=== PATIENT | female | born 1995 | race Caucasian/White ===

== ENCOUNTER 2016-12-21 19:22 | Emergency (ER) | payer OTHER ==
[~2016-12-21] VITALS: Ht 157.5 cm; Wt 74.8 kg
[2016-12-21] MEDS ORDERED: CITA20TA4 PO (19:29)
[2016-12-21] MEDS ORDERED: CLAR1TAB2 PO (19:29)
[2016-12-21] MEDS ORDERED: NS 1,000 ML IV ONE (20:45)
[2016-12-21 20:57] LABS: BASO # 0.1 K/mm3 (0.0-0.2); BASO % 0.7 % (0.0-1.0); EOS # 0.5 K/mm3 (0.0-0.50); EOS % 4.6 % (0.0-3.0); LARGE UNSTAINED CELL # 0.3 K/mm3 (0.0-0.4); LARGE UNSTAINED CELL % 2.3 % (0.0-4.0); LYMPH # 3.4 K/mm3 (1.5-6.5); LYMPH % 29.6 % (24.0-44.0); MEAN CORPUSCULAR HEMOGLOBIN 26.6 pg (27.0-33.0); MEAN CORPUSCULAR VOLUME 80.6 fl (80.0-96.0); MONO # 0.6 K/mm3 (0.0-0.8); MONO % 4.8 % (0.0-5.0); NEUTROPHILS # 6.7 K/mm3 (1.8-7.7); PLATELET COUNT, AUTOMATED 382 k/mm3 (150-450); RED CELL DISTRIBUTION WIDTH 13.9 % (11.5-14.5); WHITE BLOOD COUNT 11.6 K/mm3 (4.0-10.0)
[2016-12-21 21:14] LABS: CONTROL LINE HCG INT CTR LINE PRESENT
[2016-12-21 21:22] LABS: ALBUMIN 3.3 GM/DL (3.2-5.2); ALBUMIN/GLOBULIN RATIO 0.94 (1.00-1.93); ALKALINE PHOSPHATASE 89 U/L (45-117); ALT/SGPT 18 U/L (12-78); AMYLASE 65 U/L (25-115); ANION GAP 7 MEQ/L (8-16); AST/SGOT 13 U/L (15-37); BILIRUBIN,DIRECT < 0.1 MG/DL (0.0-0.2); BILIRUBIN,TOTAL 0.2 MG/DL (0.2-1.0); BLOOD UREA NITROGEN 9 MG/DL (7-18); CALCIUM LEVEL 8.5 MG/DL (8.5-10.1); CARBON DIOXIDE LEVEL 26 MEQ/L (21-32); CHLORIDE LEVEL 105 MEQ/L (98-107); CREATININE FOR GFR 0.64 MG/DL (0.55-1.02); GLOMERULAR FILTRATION RATE > 60.0 (>60); GLUCOSE, FASTING 80 MG/DL (70-105); POTASSIUM SERUM 4.2 MEQ/L (3.5-5.1); SODIUM LEVEL 138 MEQ/L (136-145); TOTAL PROTEIN 6.8 GM/DL (6.4-8.2)
[2016-12-21] MEDS ORDERED: BACTRIM 160MG/800MG DS TAB PO ONE (21:30)
[2016-12-21] MEDS ORDERED: BACT800T5 PO (21:31)
[2016-12-21 22:18] VITALS: BP 110/71
== END 2016-12-21 22:19 | disposition home or self-care (01) ==
LOC: M ED 20:59
DX: E86.0 Dehydration (principal); N39.0 Urinary tract infection, site not specified; F32.9 Major depressive disorder, single episode, unspecified; Z79.899 Other long term (current) drug therapy

== ENCOUNTER 2017-01-22 19:56 | Emergency (ER) | payer OTHER ==
[~2017-01-22] VITALS: Ht 157.5 cm; Wt 75.0 kg
[~2017-01-22 19:56] MED LIST: BACT800T5 PO; CITA20TA4 PO; CLAR1TAB2 PO
[2017-01-22] MEDS ORDERED: BCP PO (20:13)
[2017-01-22] MEDS ORDERED: [UNRECOGNIZED DRUG - REMARK] PO (20:13)
[2017-01-22] MEDS ORDERED: NS 1,000 ML IV ONE (21:00)
[2017-01-22] MEDS ORDERED: MORPHINE 2 MG/ML 1ML SYRINGE IV PRN (21:00)
[2017-01-22] MEDS ORDERED: ONDANSETRON 4MG/2ML VIAL (J2405) IV ONE (21:00)
[2017-01-22 21:40] LABS: BASO # 0.1 K/mm3 (0.0-0.2); BASO % 0.7 % (0.0-1.0); EOS # 0.5 K/mm3 (0.0-0.50); EOS % 4.1 % (0.0-3.0); LARGE UNSTAINED CELL # 0.3 K/mm3 (0.0-0.4); LARGE UNSTAINED CELL % 2.4 % (0.0-4.0); LYMPH # 4.6 K/mm3 (1.5-6.5); LYMPH % 36.3 % (24.0-44.0); MEAN CORPUSCULAR HEMOGLOBIN 26.1 pg (27.0-33.0); MEAN CORPUSCULAR VOLUME 76.9 fl (80.0-96.0); MONO # 0.6 K/mm3 (0.0-0.8); MONO % 5.1 % (0.0-5.0); NEUTROPHILS # 6.1 K/mm3 (1.8-7.7); NEUTROPHILS % 51.5 % (36.0-66.0); PLATELET COUNT, AUTOMATED 390 k/mm3 (150-450); RED CELL DISTRIBUTION WIDTH 13.8 % (11.5-14.5); WHITE BLOOD COUNT 11.9 K/mm3 (4.0-10.0)
[2017-01-22 21:56] LABS: CONTROL LINE HCG INT CTR LINE PRESENT
[2017-01-22 22:02] LABS: ALBUMIN 3.3 GM/DL (3.2-5.2); ALBUMIN/GLOBULIN RATIO 0.92 (1.00-1.93); ALKALINE PHOSPHATASE 92 U/L (45-117); ALT/SGPT 17 U/L (12-78); ANION GAP 2 MEQ/L (8-16); AST/SGOT 13 U/L (15-37); BILIRUBIN,DIRECT < 0.1 MG/DL (0.0-0.2); BILIRUBIN,TOTAL 0.1 MG/DL (0.2-1.0); BLOOD UREA NITROGEN 8 MG/DL (7-18); CALCIUM LEVEL 8.6 MG/DL (8.5-10.1); CARBON DIOXIDE LEVEL 30 MEQ/L (21-32); CHLORIDE LEVEL 107 MEQ/L (98-107); CREATININE FOR GFR 0.62 MG/DL (0.55-1.02); GLOMERULAR FILTRATION RATE > 60.0 (>60); GLUCOSE, FASTING 102 MG/DL (70-105); POTASSIUM SERUM 3.8 MEQ/L (3.5-5.1); SODIUM LEVEL 139 MEQ/L (136-145); TOTAL PROTEIN 6.9 GM/DL (6.4-8.2)
[2017-01-22] MEDS ORDERED: ISOVUE-370 76% 100ML VIAL (Q9967) As Ordered ONE (22:32)
--- NOTE | 2017-01-22 23:10 | REPUSA ---
CT of the abdomen and pelvis with contrast Clinical statement: Pain. Crohn's disease. Technique: Multiple axial CT images were obtained from the base of the lungs through the floor of the pelvis utilizing 5 mm axial slices after administration of nonionic intravenous contrast. Coronal an d sagittal reconstructions were also obtained. Comparison: None. Findings: Chest: The visualized lung bases are clear. Abdomen: The liver, spleen, pancreas, kidneys, gallbladder, and adrenal glands are unremarkable. The aorta is within normal limits. There is no evidence of abdominal lymphadenopathy or ascites. Pelvis: The bowel is unremarkable, with no obstructive or inflammatory changes. The appendix is makenna l. The urinary bladder is within normal limits. The other pelvic structures appear grossly intact. Th ere is no evidence of pelvic lymphadenopathy or ascites. Bones: There are no suspicious osseous abnormalities seen. Impression: Unremarkable CT examination of the abdomen and pelvis.
[2017-01-22] MEDS ORDERED: ASAC800T3 PO (23:26)
[2017-01-22] MEDS ORDERED: ZOFR4TAB3 PO (23:26)
[2017-01-22 23:42] VITALS: BP 126/85
[2017-02-27] MEDS ORDERED: JOLETAB PO (07:47)
== END 2017-01-22 23:44 | disposition home or self-care (01) ==
LOC: M ED 21:33
DX: R10.9 Unspecified abdominal pain (principal); K50.919 Crohn's disease, unspecified, with unspecified complications; Z79.899 Other long term (current) drug therapy
CPT/HCPCS: 74177; 80048; 80076; 81001; 83690; 84703; 85025; 87086; 96374; 96375; 99283; J2405; Q9967

== ENCOUNTER 2017-01-28 17:47 | Emergency (ER) | payer OTHER ==
[~2017-01-28] VITALS: Ht 157.5 cm; Wt 77.8 kg
[~2017-01-28 17:47] MED LIST changes: +ASAC800T3 PO; +BCP PO; +ZOFR4TAB3 PO; +[UNRECOGNIZED DRUG - REMARK] PO
[2017-01-28] MEDS ORDERED: AMOX875T2 PO (17:53)
[2017-01-28] MEDS ORDERED: NS 1,000 ML IV ONE (19:15)
[2017-01-28] MEDS ORDERED: ONDANSETRON 4MG/2ML VIAL (J2405) IV ONE (19:15)
[2017-01-28] MEDS ORDERED: KETOROLAC 30 MG/ML VIAL (J1885) IV ONE (19:15)
[2017-01-28 19:41] LABS: BASO # 0.1 K/mm3 (0.0-0.2); BASO % 0.6 % (0.0-1.0); EOS # 0.4 K/mm3 (0.0-0.50); EOS % 3.2 % (0.0-3.0); LARGE UNSTAINED CELL # 0.2 K/mm3 (0.0-0.4); LARGE UNSTAINED CELL % 1.8 % (0.0-4.0); LYMPH # 3.4 K/mm3 (1.5-6.5); LYMPH % 26.9 % (24.0-44.0); MEAN CORPUSCULAR HGB CONC 34.7 g/dl (32.0-36.5); MEAN CORPUSCULAR VOLUME 77.9 fl (80.0-96.0); MONO # 0.7 K/mm3 (0.0-0.8); MONO % 5.5 % (0.0-5.0); NEUTROPHILS # 7.4 K/mm3 (1.8-7.7); NEUTROPHILS % 62.1 % (36.0-66.0); PLATELET COUNT, AUTOMATED 431 k/mm3 (150-450); RED CELL DISTRIBUTION WIDTH 13.8 % (11.5-14.5)
[2017-01-28 20:10] LABS: ALBUMIN 3.5 GM/DL (3.2-5.2); ALBUMIN/GLOBULIN RATIO 0.92 (1.00-1.93); ALKALINE PHOSPHATASE 91 U/L (45-117); ALT/SGPT 20 U/L (12-78); ANION GAP 5 MEQ/L (8-16); AST/SGOT 12 U/L (15-37); BILIRUBIN,DIRECT < 0.1 MG/DL (0.0-0.2); BILIRUBIN,TOTAL 0.1 MG/DL (0.2-1.0); BLOOD UREA NITROGEN 7 MG/DL (7-18); CALCIUM LEVEL 9.2 MG/DL (8.5-10.1); CARBON DIOXIDE LEVEL 29 MEQ/L (21-32); CHLORIDE LEVEL 107 MEQ/L (98-107); CREATININE FOR GFR 0.62 MG/DL (0.55-1.02); GLOMERULAR FILTRATION RATE > 60.0 (>60); GLUCOSE, FASTING 92 MG/DL (70-105); POTASSIUM SERUM 3.6 MEQ/L (3.5-5.1); SODIUM LEVEL 141 MEQ/L (136-145); TOTAL PROTEIN 7.3 GM/DL (6.4-8.2)
[2017-01-28] MEDS ORDERED: MORPHINE 4 MG/ML 1ML SYRINGE IV ONE (20:15)
[2017-01-28] MEDS ORDERED: GASTROGRAFIN SOLUTION 30ML (Q9963) As Ordered ONE (20:34)
[2017-01-28] MEDS ORDERED: GASTROGRAFIN SOLUTION 30ML (Q9963) PO ONE ×2 (20:45→21:30)
[2017-01-28] MEDS ORDERED: ISOVUE-370 76% 100ML VIAL (Q9967) As Ordered ONE (22:29)
[2017-01-28] MEDS ORDERED: REGL10TA6 PO (23:00)
[2017-01-28] MEDS ORDERED: BENT20TA PO (23:00)
--- NOTE | 2017-01-28 23:02 | REP ---
Clinical: Lower abdominal pain. Technique: Axial contrast enhanced images from the lung bases to the pubic symphysis using oral and 100 ml Isovue 370 intravenous contrast material with coronal and sagittal re-formations. Comparison: 01/22/2017. Findings: Lung bases are clear. Visualized heart and pericardium normal. Liver, spleen, pancreas, gallbladder, bilateral adrenal glands and kidneys are normal. The enteric system is without obstruction or acute inflammatory process. Multiple prominent lymph nodes within the mesentery and right lower quadrant is compatible with mesenteric adenitis. Pelvis demonstrates collapsed normal bladder and age-appropriate uterus/adnexa. No ascites. No free air. No adenopathy. Vascular structures are normal - incidental note is made of retro aortic left renal vein. Surrounding musculoskeletal structures are intact. Impression: Mesenteric adenitis. Signed by Jim Cervantes MD 01/28/2017 10:54 P
[2017-01-28 23:06] VITALS: BP 117/77
[2017-02-27] MEDS ORDERED: JOLETAB PO (07:47)
== END 2017-01-28 23:12 | disposition home or self-care (01) ==
LOC: M ED 18:48
DX: R10.84 Generalized abdominal pain (principal); R11.2 Nausea with vomiting, unspecified; J45.909 Unspecified asthma, uncomplicated; K50.90 Crohn's disease, unspecified, without complications; F41.9 Anxiety disorder, unspecified; Z79.899 Other long term (current) drug therapy
CPT/HCPCS: 36415; 74177; 80048; 80076; 81001; 81025; 83690; 85025; 96361; 96374; 96375; 99284; J1885; J2405; Q9963; Q9967

== ENCOUNTER 2017-02-01 09:22 | Emergency (ER) | payer OTHER ==
[~2017-02-01] VITALS: Ht 157.5 cm; Wt 76.9 kg
[~2017-02-01 09:22] MED LIST changes: +AMOX875T2 PO; +BENT20TA PO; +REGL10TA6 PO
[2017-02-01 09:23] VITALS: BP 128/83
[2017-02-01] MEDS ORDERED: BACT800T5 PO (10:39)
[2017-02-01] MEDS ORDERED: ACET30TAB PO (10:39)
[2017-02-27] MEDS ORDERED: JOLETAB PO (07:47)
== END 2017-02-01 10:44 | disposition home or self-care (01) ==
LOC: M ED 09:22
DX: N39.0 Urinary tract infection, site not specified (principal); J45.909 Unspecified asthma, uncomplicated; F41.9 Anxiety disorder, unspecified; F33.9 Major depressive disorder, recurrent, unspecified; Z79.899 Other long term (current) drug therapy

== ENCOUNTER → 2017-02-13 | Outpatient (CLI) | payer OTHER ==
[~2017-02-13] MED LIST changes: +ACET30TAB PO; +ANAP550T PO; +COLA100C5 PO; +DULO30CA PO; +JOLETAB PO; +MOTR200T44 PO; +NORCOTAB PO; +PERC10TA26 PO
[2017-02-13 14:14] LABS: MEAN CORPUSCULAR HEMOGLOBIN 27.4 pg (27.0-33.0); MEAN CORPUSCULAR HGB CONC 35.2 g/dl (32.0-36.5); RED CELL DISTRIBUTION WIDTH 13.7 % (11.5-14.5); WHITE BLOOD COUNT 9.9 K/mm3 (4.0-10.0)
== END ==
LOC: M LAB 13:41
PROVIDERS: ATTEND Internal Medicine Gastroenterology
DX: R10.84 Generalized abdominal pain (principal); K62.5 Hemorrhage of anus and rectum

== ENCOUNTER → 2017-02-22 | Outpatient (CLI) | payer OTHER ==
[~2017-02-22] MED LIST changes: +E-Z-GAS II EFFERVESCENT PACKET (SODIUM BICARB./CITRIC ACID/SIMETHICONE) As Ordered ONE; +E-Z-HD 98% w/w 340GM SUSP BTL As Ordered ONE; +E-Z-PAQUE 96% w/w SUSP 176GM BTL As Ordered ONE
--- NOTE | 2017-02-22 17:01 | REP ---
Upper GI air contrast The procedure was performed under the direct supervision of Dr. Rodriguez. The commercial hvac service technician film shows no organomegaly or pathological masses . The bowel gas pattern is nonspecific. Liquid barium and gas producing crystals were given in the erect and prone oblique position and an or to perform a double contrast upper GI examination. Additionally liquid barium was given at the end of the examination in order to perform a small bowel follow-through. The oral and pharyngeal stages of deglutition are unremarkable. Esophageal transport is prompt and efficient and there is no esophagitis or stricture mucosal ring or hiatal hernia. There is gastroesophageal reflux demonstrated to below the level of the benjamin. The stomach rausch are normally outlined . The rugal folds are smooth and regular. There is no gastritis neoplasm or ulcer disease. The duodenal rausch are normally outlined . The mucosal folds are smooth and regular. There is no duodenitis pancreatitis peptic ulcer disease or neoplasm. The visualized portion of the proximal small bowel appears normal in course and caliber. The barium column was followed through the small bowel to the level of the terminal ileum. Small bowel transit time is approximately 30 minutes. During fluoroscopy gentle palpation shows all loops are freely movable and pliable. There are no fixed or angulated loops. The small bowel mucosal pattern is normal in course and caliber. There is no transition to suggest a partial small-bowel obstruction. Spot filming of the terminal ileum shows it to be unremarkable. Impression: There is gastroesophageal reflux demonstrated to below the level of the benjamin. Otherwise unremarkable double contrast upper GI and small bowel follow-through examination. 3 minutes and 25 seconds of fluoro time was utilized for this procedure. Reviewed by AMAYA Gonzalez 02/22/2017 04:40 PSigned by Austin Rodriguez MD 02/22/2017 04:53 P
== END ==
LOC: M RAD 09:15
PROVIDERS: ATTEND Internal Medicine Gastroenterology
DX: R10.84 Generalized abdominal pain (principal); K21.9 Gastro-esophageal reflux disease without esophagitis

== ENCOUNTER 2017-02-27 19:30 | Emergency (ER) | payer OTHER ==
[~2017-02-27] VITALS: Ht 157.5 cm; Wt 77.2 kg
[~2017-02-27 19:30] MED LIST changes: -ANAP550T PO; -COLA100C5 PO; -DULO30CA PO; -E-Z-GAS II EFFERVESCENT PACKET (SODIUM BICARB./CITRIC ACID/SIMETHICONE) As Ordered ONE; -E-Z-HD 98% w/w 340GM SUSP BTL As Ordered ONE; -E-Z-PAQUE 96% w/w SUSP 176GM BTL As Ordered ONE; -MOTR200T44 PO; -NORCOTAB PO; -PERC10TA26 PO
[2017-02-27] MEDS ORDERED: NS 1,000 ML IV SCH (20:08)
[2017-02-27] MEDS ORDERED: KETOROLAC 30 MG/ML VIAL (J1885) IV ONE (20:15)
[2017-02-27] MEDS ORDERED: ONDANSETRON 4MG/2ML VIAL (J2405) IV ONE (20:15)
[2017-02-27] MEDS ORDERED: PANTOPRAZOLE 40MG INJ (PROTONIX) (C9113) IV ONE (20:15)
[2017-02-27 20:27] LABS: INR 0.97
[2017-02-27 20:35] LABS: BASO # 0.1 K/mm3 (0.0-0.2); BASO % 0.8 % (0.0-1.0); EOS # 0.4 K/mm3 (0.0-0.50); EOS % 3.7 % (0.0-3.0); LARGE UNSTAINED CELL # 0.2 K/mm3 (0.0-0.4); LARGE UNSTAINED CELL % 2.2 % (0.0-4.0); LYMPH % 38.3 % (24.0-44.0); MEAN CORPUSCULAR HEMOGLOBIN 26.7 pg (27.0-33.0); MEAN CORPUSCULAR HGB CONC 34.5 g/dl (32.0-36.5); MEAN CORPUSCULAR VOLUME 77.5 fl (80.0-96.0); MONO # 0.5 K/mm3 (0.0-0.8); MONO % 5.6 % (0.0-5.0); NEUTROPHILS # 4.8 K/mm3 (1.8-7.7); NEUTROPHILS % 49.5 % (36.0-66.0); PLATELET COUNT, AUTOMATED 443 k/mm3 (150-450); RED CELL DISTRIBUTION WIDTH 13.7 % (11.5-14.5); WHITE BLOOD COUNT 9.8 K/mm3 (4.0-10.0)
[2017-02-27 20:47] LABS: ALBUMIN 3.6 GM/DL (3.2-5.2); ALBUMIN/GLOBULIN RATIO 1.06 (1.00-1.93); ALKALINE PHOSPHATASE 83 U/L (45-117); ALT/SGPT 15 U/L (12-78); AMYLASE 66 U/L (25-115); ANION GAP 8 MEQ/L (8-16); AST/SGOT 8 U/L (15-37); BILIRUBIN,DIRECT < 0.1 MG/DL (0.0-0.2); BILIRUBIN,TOTAL 0.2 MG/DL (0.2-1.0); BLOOD UREA NITROGEN 7 MG/DL (7-18); CALCIUM LEVEL 9.3 MG/DL (8.5-10.1); CARBON DIOXIDE LEVEL 25 MEQ/L (21-32); CHLORIDE LEVEL 103 MEQ/L (98-107); CREATININE FOR GFR 0.67 MG/DL (0.55-1.02); GLOMERULAR FILTRATION RATE > 60.0 (>60); GLUCOSE, FASTING 111 MG/DL (70-105); SODIUM LEVEL 136 MEQ/L (136-145)
[2017-02-27 20:57] LABS: CONTROL LINE HCG INT CTR LINE PRESENT
[2017-02-27] MEDS ORDERED: MORPHINE 2 MG/ML 1ML SYRINGE IV ONE (21:45)
--- NOTE | 2017-02-27 21:50 | REPUSA ---
CLINICAL HISTORY: Abdominal pain. TECHNIQUE: Multiple axial, sagittal and coronal CT images were obtained through the abdomen and pelvi s without administration of oral or IV contrast material. Oral contrast material is noted in the col on. COMMENTS: The liver is of uniform attenuation without mass or defect. There is no intra or extrahepatic biliary ductal dilatation. The spleen is normal. The gallbladder is contracted. The pancreas is of normal co ntour and attenuation characteristics. There is no evidence of adrenal mass. The kidneys are normal in size, shape and configuration. No renal or ureteral calculi are identified. There is no hydroureter or hydronephrosis. There is no evidence for appendicitis. There is no bowel wall thickening. No evidence for small or la rge bowel obstruction. Numerous mesenteric lymph nodes are noted, enlarged in the right lower quadra nt measuring up to 15 mm in cross section. Although this could represent acute mesenteric lymphaden itis, please correlate clinically to exclude lymphoproliferative disorder. There is no evidence of intrinsic or extrinsic bladder mass. There is no pelvic ascites or lymphadeno tristan. The uterus and ovaries are normal Images of the lung bases show no evidence of pleural or parenchymal mass. There are no pleural effusi ons. The bony structures are free of lytic or blastic lesions. IMPRESSION: Numerous mesenteric lymph nodes are noted, enlarged in the right lower quadrant measuring up to 15 m m in cross section. Although this could represent acute mesenteric lymphadenitis, please correlate c linically to exclude lymphoproliferative disorder. Clinical correlation is recommended. Thank you for your kind referral of this patient.
[2017-02-27] MEDS ORDERED: ZOFR4TAB3 PO (21:55)
[2017-02-27] MEDS ORDERED: NORCOTAB PO (21:55)
[2017-02-27] MEDS ORDERED: NORCO 5/325MG TABLET (BULK FOR ED) PO ONE (22:00)
[2017-02-27 22:12] VITALS: BP 118/78
--- NOTE | 2017-02-28 07:31 | ED PDOC ---
Post-Departure Follow-Up radiology report faxed to [facility] Norah Pablo MD Feb 28, 2017 07:31
== END 2017-02-27 22:38 | disposition home or self-care (01) ==
LOC: M ED 19:30
DX: I88.0 Nonspecific mesenteric lymphadenitis (principal); R10.9 Unspecified abdominal pain; J45.909 Unspecified asthma, uncomplicated; Z79.3 Long term (current) use of hormonal contraceptives; Z79.899 Other long term (current) drug therapy
CPT/HCPCS: 74176; 80048; 80076; 81001; 82150; 83690; 84703; 85025; 85610; 87086; 96374; 96375; 99284; C9113; J1885; J2405

== ENCOUNTER 2017-03-06 07:17 | Outpatient (CLI) | payer OTHER ==
[~2017-03-06] VITALS: Ht 157.5 cm; Wt 77.1 kg
[~2017-03-06 07:17] MED LIST changes: +LIDOCAINE 2% INJ 100 MG/5 ML SDV (FOR ANES.) As Ordered ONE; +NORCOTAB PO; +NS 1,000 ML IV SCH; +PROPOFOL 200 MG/20 ML VIAL As Ordered ONE
[2017-03-06] MEDS ORDERED: PROPOFOL 200 MG/20 ML VIAL As Ordered ONE (07:56)
--- NOTE | 2017-03-06 08:13 | ROOR ---
Patient Name: Priya Mcgraw Procedure Date: 03/06/2017 7:48 AM Date of : 1995 Age: 21 Room: [facility] Gender: Female Note Status: Finalized Procedure: Total Colonoscopy to Cecum + ileoscopy + Bx Indications: Lower abdominal pain, Change in bowel habits Providers: Mickey Mcgee MD Referring MD: MARKOS BURROWS MD Requesting Provider: Medicines: Monitored Anesthesia Care Complications: No immediate complications. Procedure: Pre-Anesthesia Assessment: - The heart rate, respiratory rate, oxygen saturations, blood pressure, adequacy of pulmonary ventilation, and response to care were monitored throughout the procedure. The Colonoscope was introduced through the anus and advanced to the terminal ileum, with identification of the appendiceal orifice and IC valve. The colonoscopy was performed without difficulty. The patient tolerated the procedure well. The quality of the bowel preparation was excellent. Findings: The perianal and digital rectal examinations were normal. Non-bleeding internal hemorrhoids were found during retroflexion. The hemorrhoids were small and Grade I (internal hemorrhoids that do not prolapse). Multiple diminutive mucosal nodules were found in the rectum, in the recto-sigmoid colon, in the sigmoid colon and in the descending colon. Biopsies were taken with a cold forceps for histology. A diffuse area of mucosa in the proximal ileum was nodular. Biopsies were taken with a cold forceps for histology. The exam was otherwise without abnormality on direct and retroflexion views. Impression: - Non-bleeding internal hemorrhoids. - Mucosal nodule in the rectum, in the recto-sigmoid colon, in the sigmoid colon and in the descending colon. Biopsied. - Nodular ileal mucosa. Biopsied. - The examination was otherwise normal on direct and retroflexion views. - The exam was otherwise normal to the cecum. Recommendation: - Patient has a contact number available for emergencies. The signs and symptoms of potential delayed complications were discussed with the patient. Return to normal activities tomorrow. Written discharge instructions were provided to the patient. - Discharge patient to home. - Continue present medications. - Await pathology results. - Telephone GI clinic for pathology results in 1 week. - Check Portal Online for Path Results.([email or web address] - Return to referring physician. - The findings and recommendations were discussed with the patient's family. Mickey Mcgee MD Mickey Mcgee MD 03/06/2017 8:12:57 AM This report has been signed electronically. Number of Addenda: 0 Note Initiated On: 03/06/2017 7:48 AM Estimated Blood Loss: Estimated blood loss: none.
[2017-03-06 08:33] VITALS: BP 139/88
== END 2017-03-06 08:35 | disposition home or self-care (01) ==
LOC: M OPP 07:17
PROVIDERS: ATTEND Internal Medicine Gastroenterology
DX: R19.4 Change in bowel habit (principal); R10.30 Lower abdominal pain, unspecified; K64.0 First degree hemorrhoids; K62.89 Other specified diseases of anus and rectum; K63.89 Other specified diseases of intestine; I10 Essential (primary) hypertension; R12 Heartburn; M54.5 Low back pain; F41.9 Anxiety disorder, unspecified; J45.909 Unspecified asthma, uncomplicated; R06.02 Shortness of breath; Z87.440 Personal history of urinary (tract) infections; Z79.899 Other long term (current) drug therapy; Z80.7 Family history of other malignant neoplasms of lymphoid, hematopoietic and related tissues

== ENCOUNTER 2017-05-08 09:29 | Observation (INO) | payer OTHER ==
[~2017-05-08] VITALS: Ht 157.5 cm; Wt 81.6 kg
[~2017-05-08 09:29] MED LIST changes: -LIDOCAINE 2% INJ 100 MG/5 ML SDV (FOR ANES.) As Ordered ONE; -NS 1,000 ML IV SCH; -PROPOFOL 200 MG/20 ML VIAL As Ordered ONE
[2017-05-08] MEDS ORDERED: DULO30CA PO (09:49)
[2017-05-08] MEDS ORDERED: MORPHINE 2 MG/ML 1ML SYRINGE IV PRN (10:30)
[2017-05-08] MEDS ORDERED: NS 1,000 ML IV ONE (10:30)
[2017-05-08 11:00] LABS: BASO # 0.1 10^3/uL (0.0-0.2); BASO % 0.9 % (0.0-1.0); EOS # 0.5 10^3/uL (0.0-0.50); EOS % 4.2 % (0.0-3.0); IMMATURE GRANULOCYTE % 0.4 % (0-0); LYMPH # 3.6 10^3/uL (1.5-6.5); LYMPH % 32.4 % (24.0-44.0); MEAN CORPUSCULAR HGB CONC 33.8 g/dl (32.0-36.5); MONO # 0.8 10^3/uL (0.0-0.8); MONO % 7.3 % (0.0-5.0); NEUTROPHILS # 6.1 10^3/uL (1.8-7.7); NEUTROPHILS % 54.8 % (36.0-66.0); PLATELET COUNT, AUTOMATED 368 10^3/uL (150-450); RED CELL DISTRIBUTION WIDTH 13.3 % (11.5-14.5)
[2017-05-08 11:05] LABS: ADD MANUAL DIFFER NO; DIFF SLIDE NUMBER 180
[2017-05-08 11:15] LABS: ANION GAP 6 MEQ/L (8-16); BLOOD UREA NITROGEN 10 MG/DL (7-18); CALCIUM LEVEL 9.3 MG/DL (8.5-10.1); CARBON DIOXIDE LEVEL 29 MEQ/L (21-32); CHLORIDE LEVEL 105 MEQ/L (98-107); CREATININE FOR GFR 0.61 MG/DL (0.55-1.02); GLOMERULAR FILTRATION RATE > 60.0 (>60); GLUCOSE, FASTING 78 MG/DL (70-105); POTASSIUM SERUM 4.1 MEQ/L (3.5-5.1); SODIUM LEVEL 140 MEQ/L (136-145)
--- NOTE | 2017-05-08 11:57 | REP ---
Pelvic ultrasound: The study is performed with transabdominal, endovaginal and Doppler ultrasound assessment. The patient complains of left lower quadrant pain. The bladder is suboptimally distended. The uterus is anteverted and normal size measuring 7.7 by 2.5 x 4.8 cm. Balloon The endometrium is not thickened measuring 6.4 mm. The right ovary is obscured by bowel gas. Both transabdominal and endovaginal imaging. The left ovary is normal size measuring 3.6 x 2.9 by 2.2 cm. There is a 3.3 cm left ovarian hemorrhagic cyst. On Doppler ultrasound of the left ovary, there is no visible vascular flow in most of the left ovarian parenchyma. There is a small portion that demonstrates a very slow vascular flow. Findings are concerning for left ovarian torsion. Impression: Findings are concerning for left ovarian torsion. Additionally there is a 3.3 cm hemorrhagic left ovarian cyst. The right ovary could not be visualized. Uterus and endometrium are unremarkable. Signed by Michael Nascimento MD 05/08/2017 11:49 A
[2017-05-08] MEDS ORDERED: ONDANSETRON 4MG/2ML VIAL (J2405) IV PRN (12:30)
[2017-05-08] MEDS ORDERED: PROMETHAZINE 25 MG TAB PO PRN (12:30)
[2017-05-08] MEDS: LR 1,000 ML IV SCH ×2 (12:48→21:23)
[2017-05-08 15:30] VITALS: BP 127/82
[2017-05-08] MEDS: MORPHINE 2 MG/ML 1ML SYRINGE IV PRN (16:25)
[2017-05-08 20:00] VITALS: BP 125/92
[2017-05-08] MEDS ORDERED: LORATADINE 10 MG TAB PO SCH (21:00)
[2017-05-08] MEDS: PERCOCET 5MG/325MG TAB PO PRN (21:20)
[2017-05-09] VITALS: BP 114/74
[2017-05-09] MEDS: PERCOCET 5MG/325MG TAB PO PRN ×3 (01:19→12:06)
[2017-05-09] MEDS: LR 1,000 ML IV SCH ×2 (05:27→14:00)
[2017-05-09] MEDS: MORPHINE 2 MG/ML 1ML SYRINGE IV PRN (06:50)
[2017-05-09 08:06] VITALS: BP 117/74
[2017-05-09] MEDS ORDERED: IBUPROFEN 800 MG TAB PO PRN (09:00)
[2017-05-09] MEDS ORDERED: DULoxetine 30 MG CAP (CYMBALTA) PO SCH (09:00)
[2017-05-09 12:45] VITALS: BP 133/88
[2017-05-09 18:00] VITALS: BP 126/80
--- NOTE | 2017-05-09 18:16 | DS.PDOC ---
Discharge Summary General Date of Admission May 08, 2017 at 12:28 Date of Discharge [id number] Discharge Summary PROCEDURES PERFORMED DURING STAY: Admission to OBS for r/o torsion and serial exams ADMITTING DIAGNOSIS: 1. 3 cm unilateral ovarian cyst, concerns for torsion on formal read DISCHARGE DIAGNOSES: 1. No evidence torsion HOSPITAL COURSE: Pt reports that her LLQ pain is slightly improved as it was on admission, not ever worse. Received one dose Motrin this AM and one dose percocet today. On exam, minimal abd tenderness, no rebound, no guarding. Vitals WNL. Discussed with pt that she still has no concerning findings for torsion and nothing obvious that is surgical and warrants further observation. Patient is frustrated with her pain and the lack of an obvious source. EXAM: Vitals normal and benign at discharge LABORATORY DATA: Please see below. Meds: Motrin prn ACTIVITY: as tolerated. DIET: regular DISPOSITION:stable TIME SPENT ON DISCHARGE: Greater than 15 minutes. Sessions Vital Signs/I&Os Vital Signs Date Time Temp Pulse Resp B/P (MAP) Pulse Ox O2 Delivery O2 Flow Rate FiO2 05/09/17 12:45 97.8 85 16 133/88 (103) 98 Room Air I&O- Last 24 Hours up to 6 AM 05/10/17 06:00 Output Total 700 ml Balance -700 ml Microbiology Microbiology 05/08/17 Urine Culture - Final, Complete Discharge Medications Scheduled Duloxetine Hcl (Cymbalta) 30 Mg Cap, 60 MG PO DAILY, (Reported) Scheduled PRN Loratadine (Claritin) 10 Mg Tab, 10 MG PO DAILY PRN for ALLERGY SYMPTOMS, ( Reported) Allergies Coded Allergies: No Known Allergies (Unverified , 02/27/17) SESSIONSMEL MD May 09, 2017 18:16
[2017-05-09] MEDS ORDERED: MOTR200T44 PO (18:30)
[2017-05-10] MEDS ORDERED: INFLUENZA QUADRIVALENT PF VACCINE 0.5ML SYRINGE (90686) IM ONE (09:00)
[2017-05-10] MEDS ORDERED: BACT800T5 PO (11:18)
[2017-05-10] MEDS ORDERED: PERC10TA26 PO (11:18)
== END 2017-05-09 18:55 | disposition home or self-care (01) ==
LOC: M ED 09:29 → M ED INP 12:28 → M PED 15:32
PROVIDERS: ADMIT Obstetrics & Gynecology; ATTEND Obstetrics & Gynecology
DX: N83.292 Other ovarian cyst, left side (principal); R10.32 Left lower quadrant pain
CPT/HCPCS: 36415; 76830; 76856; 80048; 81001; 81025; 85025; 87086; 93976; 96361; 96374; 96375; 96376; 99284; J2405

== ENCOUNTER 2017-05-10 09:02 | Emergency (ER) | payer OTHER ==
[~2017-05-10] VITALS: Ht 157.5 cm; Wt 81.8 kg
[~2017-05-10 09:02] MED LIST changes: +DULO30CA PO; +MOTR200T44 PO
[2017-05-10] MEDS ORDERED: ONDANSETRON 4MG/2ML VIAL (J2405) IV ONE (09:30)
[2017-05-10] MEDS ORDERED: NS 1,000 ML IV ONE (09:30)
[2017-05-10] MEDS: MORPHINE 4 MG/ML 1ML SYRINGE IV PRN ×2 (09:42→10:36)
[2017-05-10 09:56] LABS: BASO # 0.1 10^3/uL (0.0-0.2); BASO % 0.5 % (0.0-1.0); EOS # 0.3 10^3/uL (0.0-0.50); EOS % 3.5 % (0.0-3.0); IMMATURE GRANULOCYTE % 0.1 % (0-0); LYMPH # 2.6 10^3/uL (1.5-6.5); LYMPH % 27.8 % (24.0-44.0); MEAN CORPUSCULAR HEMOGLOBIN 25.7 pg (27.0-33.0); MEAN CORPUSCULAR HGB CONC 33.2 g/dl (32.0-36.5); MEAN CORPUSCULAR VOLUME 77.4 fl (80.0-96.0); MONO # 0.5 10^3/uL (0.0-0.8); MONO % 5.8 % (0.0-5.0); NEUTROPHILS # 5.8 10^3/uL (1.8-7.7); NEUTROPHILS % 62.3 % (36.0-66.0); PLATELET COUNT, AUTOMATED 346 10^3/uL (150-450); RED CELL DISTRIBUTION WIDTH 13.1 % (11.5-14.5); WHITE BLOOD COUNT 9.3 10^3/uL (4.0-10.0)
[2017-05-10 10:22] LABS: ALBUMIN 3.5 GM/DL (3.2-5.2); ALBUMIN/GLOBULIN RATIO 1.03 (1.00-1.93); ALKALINE PHOSPHATASE 116 U/L (45-117); ALT/SGPT 60 U/L (12-78); ANION GAP 8 MEQ/L (8-16); AST/SGOT 32 U/L (15-37); BILIRUBIN,DIRECT < 0.1 MG/DL (0.0-0.2); BILIRUBIN,TOTAL 0.2 MG/DL (0.2-1.0); BLOOD UREA NITROGEN 10 MG/DL (7-18); CALCIUM LEVEL 9.2 MG/DL (8.5-10.1); CARBON DIOXIDE LEVEL 28 MEQ/L (21-32); CHLORIDE LEVEL 104 MEQ/L (98-107); CREATININE FOR GFR 0.79 MG/DL (0.55-1.02); GLOMERULAR FILTRATION RATE > 60.0 (>60); GLUCOSE, FASTING 126 MG/DL (70-105); POTASSIUM SERUM 4.3 MEQ/L (3.5-5.1); SODIUM LEVEL 140 MEQ/L (136-145); TOTAL PROTEIN 6.9 GM/DL (6.4-8.2)
--- NOTE | 2017-05-10 10:55 | REP ---
Follow-up pelvic ultrasound: Comparison is 05/08/2017. On the comparison study there was concern for left ovarian torsion. The right ovary could not be visualized previously. Additionally, on the prior study there was a 3.3 cm hemorrhagic left ovarian cyst. The study today is again performed with transabdominal, endovaginal and Doppler ultrasound assessment. The bladder is poorly distended. The uterus is anteverted and normal size measuring 7.1 x 2.3 x 4.0 cm. The endometrium is not thickened measuring 3.0 mm. The right ovary again cannot be visualized. The left ovary is normal size measuring 2.5 x 2.6 x 1.8 centimeters. With Doppler assessment today there is normal vascular flow in the left ovary with the Doppler resistive index of 0.42. The hemorrhagic cyst today measures 2.1 x 1.6 x 1.4 cm and has decreased size. There is no free fluid in the pelvis. Signed by Michael Nascimento MD 05/10/2017 10:46 A
[2017-05-10 11:01] VITALS: BP 138/86
[2017-05-10] MEDS ORDERED: BACT800T5 PO (11:18)
[2017-05-10] MEDS ORDERED: PERC10TA26 PO (11:18)
== END 2017-05-10 11:30 | disposition home or self-care (01) ==
LOC: M ED 09:02
DX: N39.0 Urinary tract infection, site not specified (principal); N83.202 Unspecified ovarian cyst, left side; J45.909 Unspecified asthma, uncomplicated
CPT/HCPCS: 36415; 76830; 76856; 80048; 80076; 81001; 81025; 83605; 85025; 87086; 93976; 99284; J2405

== ENCOUNTER 2017-05-14 08:27 | Emergency (ER) | payer OTHER ==
[~2017-05-14] VITALS: Ht 157.5 cm; Wt 81.8 kg
[~2017-05-14 08:27] MED LIST changes: +PERC10TA26 PO
[2017-05-14 08:52] VITALS: BP 136/79
--- NOTE | 2017-05-14 10:17 | REP ---
Pelvic sonography: History: Left ovarian cyst. Left-sided pelvic pain. Comparison pelvic sonography May 10, 2017. Findings: Transabdominal and transvaginal scanning are performed. Uterine dimensions are normal at 7.8 x 2.9 x 4.1 cm. Endometrial echo 0.5 cm thick. No focal uterine mass is seen. No free fluid is noted. Right ovary has a normal appearance measuring 1.9 x 1.3 x 1.5 cm. Doppler flow is normal, resistive index 0.31. Left ovarian dimensions are 2.2 x 2.0 x 1.6 cm. It contains a 1.6 x 1.1 x 1.1 cm hypoechoic cyst which has decreased in size from the comparison study May 10, 2017. Doppler flow to the left ovary is normal, resistive index 0.47. Impression: No significant abnormality. 1.6 cm hypoechoic cystic area left ovary decreased in size. Otherwise normal. Signed by Austin Rodriguez MD 05/14/2017 05:26 P
--- NOTE | 2017-05-14 10:58 | REP ---
Acute abdominal series series including PA chest and supine upright abdomen: PA chest: Comparison is 02/19/2017. The lung clement are clear. Cardiac size is normal. The dwayne, mediastinum, and bony thorax unremarkable. There is no subdiaphragmatic air. Impression: Negative PA chest. There is no interval change. Abdomen, supine and upright views: Comparison is a abdomen pelvis CT dated 02/27/2017. The bowel gas pattern is normal. There is abundant fecal residue throughout the colon. There are no calcifications. The skeletal and soft tissue structures otherwise are normal. Impression: Normal bowel gas pattern. Signed by Michael Nascimento MD 05/14/2017 10:49 A
[2017-05-14] MEDS ORDERED: BISACODYL 5 MG TAB PO ONE (11:00)
[2017-05-14] MEDS ORDERED: ANAP550T PO (12:15)
[2017-05-14] MEDS ORDERED: COLA100C5 PO (12:15)
== END 2017-05-14 12:51 | disposition home or self-care (01) ==
LOC: M ED 08:27
DX: R10.84 Generalized abdominal pain (principal); K59.03 Drug induced constipation; F41.9 Anxiety disorder, unspecified; Z79.899 Other long term (current) drug therapy

== ENCOUNTER → 2017-07-09 | Outpatient (REF) | payer OTHER ==
[~2017-07-09] MED LIST changes: +ANAP550T PO; +COLA100C5 PO
== END ==
LOC: M SFHCLERA 11:29
PROVIDERS: ATTEND Family Medicine
DX: Z32.01 Encounter for pregnancy test, result positive (principal)

== ENCOUNTER → 2017-07-12 | Outpatient (REF) | payer OTHER | LOC: M SFHCLERA 14:46 | PROVIDERS: ATTEND Family Medicine | DX: Z36.9 Encounter for antenatal screening, unspecified (principal); Z3A.01 Less than 8 weeks gestation of pregnancy ==

== ENCOUNTER → 2017-07-18 | Outpatient (REF) | payer OTHER | LOC: M SFHCLERA 08:45 | PROVIDERS: ATTEND Family Medicine | DX: Z3A.01 Less than 8 weeks gestation of pregnancy (principal); Z53.9 Procedure and treatment not carried out, unspecified reason ==

== ENCOUNTER → 2017-09-26 | Outpatient (CLI) | payer OTHER ==
[2017-09-26 11:45] LABS: BASO % 0.3 % (0.0-1.0); EOS # 0.2 10^3/uL (0.0-0.50); EOS % 1.5 % (0.0-3.0); HEMATOCRIT 34.9 % (36.0-47.0); IMMATURE GRANULOCYTE % 0.5 % (0-3.0); LYMPH # 2.5 10^3/uL (1.5-6.5); MEAN CORPUSCULAR HEMOGLOBIN 26.6 pg (27.0-33.0); MEAN CORPUSCULAR HGB CONC 34.4 g/dl (32.0-36.5); MEAN CORPUSCULAR VOLUME 77.4 fl (80.0-96.0); MONO # 0.7 10^3/uL (0.0-0.8); MONO % 5.7 % (0.0-5.0); NEUTROPHILS # 8.1 10^3/uL (1.8-7.7); PLATELET COUNT, AUTOMATED 291 10^3/uL (150-450); RED BLOOD COUNT 4.51 10^6/uL (4.00-5.40); RED CELL DISTRIBUTION WIDTH 14.6 % (11.5-14.5); WHITE BLOOD COUNT 11.5 10^3/uL (4.0-10.0)
[2017-09-26 13:09] LABS: CHLAMYDIA DNA AMPLIFICATION NEGATIVE (NEGATIVE); GC DNA AMPLIFICATION NEGATIVE (NEGATIVE)
[2017-09-27 10:00] LABS: RUBELLA IgG QUALITATIVE IMMUNE (IMMUNE)
[2017-09-27 10:15] LABS: HBsAg Prenatal NEGATIVE (NEGATIVE)
[2017-09-27 10:30] LABS: HIV 1&2 SCREEN CENTAUR NEGATIVE (NEGATIVE)
== END ==
LOC: M LRY 09:07
DX: Z34.81 Encounter for supervision of other normal pregnancy, first trimester (principal); Z3A.10 10 weeks gestation of pregnancy

== ENCOUNTER → 2017-10-09 | Outpatient (REF) | payer OTHER | LOC: M LAB REF 13:03 | DX: Z34.82 Encounter for supervision of other normal pregnancy, second trimester (principal) | CPT/HCPCS: 87086 ==

== ENCOUNTER → 2017-10-31 | Outpatient (CLI) | payer OTHER | LOC: M RAD 12:37 | DX: Z34.82 Encounter for supervision of other normal pregnancy, second trimester (principal); Z3A.20 20 weeks gestation of pregnancy | CPT/HCPCS: 76811 ==

== ENCOUNTER → 2017-12-31 | Outpatient (CLI) | payer OTHER ==
[2017-12-31 18:45] LABS: GLUCOSE CHALLENGE TEST 1 HOUR 152 MG/DL (LESS THAN 140)
[2017-12-31 18:47] LABS: HEMATOCRIT 36.6 % (36.0-47.0); HEMOGLOBIN 11.8 g/dl (12.0-15.5); MEAN CORPUSCULAR HEMOGLOBIN 26.5 pg (27.0-33.0); MEAN CORPUSCULAR HGB CONC 32.2 g/dl (32.0-36.5); MEAN CORPUSCULAR VOLUME 82.2 fl (80.0-96.0); PLATELET COUNT, AUTOMATED 278 10^3/uL (150-450); RED BLOOD COUNT 4.45 10^6/uL (4.00-5.40); RED CELL DISTRIBUTION WIDTH 15.9 % (11.5-14.5); WHITE BLOOD COUNT 16.9 10^3/uL (4.0-10.0)
[2018-01-01 08:59] LABS: TYPE AND SCREEN 1 1
== END ==
LOC: M WUC 12:32
DX: Z34.82 Encounter for supervision of other normal pregnancy, second trimester (principal); Z36.89 Encounter for other specified antenatal screening
CPT/HCPCS: 82950

== ENCOUNTER 2018-01-14 07:18 | Outpatient (CLI) | payer OTHER ==
[2018-01-14 07:58] LABS: BEDSIDE GLUCOSE 115 MG/DL (70-105)
== END 2018-01-14 09:25 | disposition home or self-care (01) ==
LOC: M LDO 07:18
DX: O26.893 Other specified pregnancy related conditions, third trimester (principal); Z3A.31 31 weeks gestation of pregnancy
CPT/HCPCS: 59025

== ENCOUNTER → 2018-01-22 | Outpatient (CLI) | payer OTHER | LOC: M RAD 17:34 | DX: O14.03 Mild to moderate pre-eclampsia, third trimester (principal); O24.419 Gestational diabetes mellitus in pregnancy, unspecified control ==

== ENCOUNTER → 2018-02-03 | Outpatient (REF) | payer OTHER | LOC: M LAB REF 17:12 | DX: Z36.89 Encounter for other specified antenatal screening (principal); Z3A.00 Weeks of gestation of pregnancy not specified | CPT/HCPCS: 87081 ==

== ENCOUNTER → 2018-02-20 | Outpatient (CLI) | payer OTHER | LOC: M RAD 06:33 | DX: O24.419 Gestational diabetes mellitus in pregnancy, unspecified control (principal); O14.03 Mild to moderate pre-eclampsia, third trimester; Z3A.36 36 weeks gestation of pregnancy; O36.63X0 Maternal care for excessive fetal growth, third trimester, not applicable or unspecified | CPT/HCPCS: 76816 ==

== ENCOUNTER 2018-02-22 08:45 | Outpatient (CLI) | payer OTHER | END 2018-02-22 11:17 | disposition home or self-care (01) | LOC: M LDO 08:45 | DX: O26.893 Other specified pregnancy related conditions, third trimester (principal); N89.8 Other specified noninflammatory disorders of vagina; Z3A.37 37 weeks gestation of pregnancy | CPT/HCPCS: 59025 ==

== ENCOUNTER → 2018-11-19 | Outpatient (REF) | payer OTHER, SELFPAY ==
[~2018-11-19] MED LIST changes: +ACET-716 PO; -ACET30TAB PO; -ANAP550T PO; +ANAP550T15 PO; +CALC1CHW3 PO; +CELE10TA PO; -CITA20TA4 PO; +CITA20TA6 PO; -DULO30CA PO; +DULO30CA9 PO; +FLON1SPR; +HYDR-3715 PO; +IBUP1TAB7 PO; +MAPA500T2 PO; +MILK120011 PO; -NORCOTAB PO; +PERCOCET PO; +PRENTAB9 PO; +ZOFR4TAB14 PO; -ZOFR4TAB3 PO
[2018-11-19 17:53] LABS: HCG, SERUM QUALITATIVE NEGATIVE (NEGATIVE)
== END ==
LOC: M SFHCLERA 11:11
PROVIDERS: ATTEND Family Medicine
DX: N91.2 Amenorrhea, unspecified (principal)

== ENCOUNTER → 2019-01-16 | Outpatient (REF) | payer OTHER | LOC: M SFHCLERA 08:24 | PROVIDERS: ATTEND Family Medicine | DX: Z32.01 Encounter for pregnancy test, result positive (principal) ==

== ENCOUNTER → 2019-03-10 | Outpatient (CLI) | payer BC ==
[2019-03-10 14:42] LABS: BASO # 0.1 10^3/uL (0.0-0.2); BASO % 0.4 % (0.0-1.0); EOS # 0.1 10^3/uL (0.0-0.50); EOS % 0.9 % (0.0-3.0); HEMATOCRIT 39.7 % (36.0-47.0); HEMOGLOBIN 13.4 g/dl (12.0-15.5); LYMPH # 3.6 10^3/uL (1.5-6.5); LYMPH % 28.2 % (24.0-44.0); MEAN CORPUSCULAR HEMOGLOBIN 27.7 pg (27.0-33.0); MEAN CORPUSCULAR HGB CONC 33.8 g/dl (32.0-36.5); MEAN CORPUSCULAR VOLUME 82.2 fl (80.0-96.0); MONO # 0.6 10^3/uL (0.0-0.8); MONO % 4.6 % (0.0-5.0); NEUTROPHILS # 8.3 10^3/uL (1.8-7.7); NEUTROPHILS % 65.4 % (36.0-66.0); PLATELET COUNT, AUTOMATED 300 10^3/uL (150-450); RED BLOOD COUNT 4.83 10^6/uL (4.00-5.40); WHITE BLOOD COUNT 12.7 10^3/uL (4.0-10.0)
[2019-03-10 16:37] LABS: CHLAMYDIA DNA AMPLIFICATION NEGATIVE (NEGATIVE); GC DNA AMPLIFICATION NEGATIVE (NEGATIVE)
[2019-03-11 10:41] LABS: HEPATITIS C VIRUS ABY INDEX 0.1 INDEX (<0.8); HIV 1&2 SCREEN CENTAUR NEGATIVE (NEGATIVE); RUBELLA IgG QUALITATIVE IMMUNE (IMMUNE)
== END ==
LOC: M SMT 09:38
PROVIDERS: ATTEND Obstetrics & Gynecology
DX: Z34.81 Encounter for supervision of other normal pregnancy, first trimester (principal); Z3A.00 Weeks of gestation of pregnancy not specified

== ENCOUNTER → 2019-03-17 | Outpatient (CLI) | payer SELFPAY, BC | LOC: M LAB 10:30 | PROVIDERS: ATTEND Obstetrics & Gynecology | DX: Z36.89 Encounter for other specified antenatal screening (principal) ==

== ENCOUNTER → 2019-04-28 | Outpatient (CLI) | payer BC ==
--- NOTE | 2019-04-29 06:46 | REP ---
Clinical: Anatomical evaluation. Comparison: None . Findings: Examination demonstrates a single live intrauterine in breech presentation. motion is identified by technologist. Placenta is noted posterior/fundal and grade zero without evidence for placenta previa or abruption. Amniotic fluid volume is normal. Cervix measures 4.6 cm in length and appears closed. No evidence for nuchal cord. Gestational age by LMP 18 weeks for the with OSMAR is 09/25/2019 . Gestational age by current measurements 19 weeks 3-day with OSMAR 09/19/2019 . FHR equals 139 beats per minute. BPD 4.6 cm 20 weeks 0 days HC 16.8 cm 19 weeks 3 days AC 14.2 cm 19 weeks 4 days FL 2.9 cm 18 weeks 0 days HL 2.9 cm 19 weeks 2 days HC/AC ratio 1.19 Estimated weight 287 grams ( 75th percentile). Anatomical assessment demonstrates normal structures including cranium, choroid plexus, cavum, cerebellum/posterior fossa, facial profile, lungs, diaphragm, stomach, cord insertion/three-vessel cord, kidneys/bladder, and upper extremities. Limited evaluation of the facial features, heart/ventricular outflow tracts, spine, and lower extremities. Impression: Single live intrauterine in breech presentation demonstrating appropriate interval growth. 2. Anatomical limitations as noted above may warrant reevaluation and follow-up. Electronically Signed by Jim Cervantes MD 04/29/2019 06:38 A
== END ==
LOC: M RAD 09:58
PROVIDERS: ATTEND Advanced Practice Midwife
DX: Z34.82 Encounter for supervision of other normal pregnancy, second trimester (principal)

== ENCOUNTER → 2019-06-04 | Outpatient (CLI) | payer BC ==
--- NOTE | 2019-06-04 11:26 | REP ---
Clinical: Anatomical evaluation. Comparison: 04/28/2019 . Findings: Examination demonstrates a single live intrauterine in breech presentation. motion is identified by technologist. Placenta is noted posterior/fundal and grade I without evidence for placenta previa or abruption. Amniotic fluid volume is normal. Cervix measures 5.0 cm in length and appears closed. No evidence for nuchal cord. Gestational age by LMP 23 weeks 6 days with OSMAR 09/25/2019 . Gestational age by current measurements 25 weeks 1 day with OSMAR 09/16/2019 . FHR equals 146 beats per minute. Estimated weight 747 grams ( 75th percentile). Anatomical assessment demonstrates normal structures including cranium, choroid plexus, cavum, cerebellum/posterior fossa, facial features, lungs, four-chamber heart/ventricular outflow tracts, diaphragm, stomach, cord insertion/three-vessel cord, kidneys/bladder, spine, and extremities. Impression: Single live intrauterine in breech presentation demonstrating appropriate interval growth. Topical assessment is complete and normal. No gross abnormalities are identified. Electronically Signed by Jim Cervantes MD 06/04/2019 11:16 A
== END ==
LOC: M RAD 10:19
PROVIDERS: ATTEND Advanced Practice Midwife
DX: O34.211 Maternal care for low transverse scar from previous cesarean delivery (principal); Z3A.23 23 weeks gestation of pregnancy; O32.1XX0 Maternal care for breech presentation, not applicable or unspecified

== ENCOUNTER → 2019-07-14 | Outpatient (CLI) | payer BC ==
[2019-07-14 11:26] LABS: HEMATOCRIT 36.6 % (36.0-47.0); HEMOGLOBIN 11.8 g/dl (12.0-15.5); MEAN CORPUSCULAR HEMOGLOBIN 26.7 pg (27.0-33.0); MEAN CORPUSCULAR HGB CONC 32.2 g/dl (32.0-36.5); MEAN CORPUSCULAR VOLUME 82.8 fl (80.0-96.0); PLATELET COUNT, AUTOMATED 248 10^3/uL (150-450); RED BLOOD COUNT 4.42 10^6/uL (4.00-5.40); WHITE BLOOD COUNT 14.1 10^3/uL (4.0-10.0)
== END ==
LOC: M LAB 09:28
PROVIDERS: ATTEND Advanced Practice Midwife
DX: O26.892 Other specified pregnancy related conditions, second trimester (principal); Z3A.00 Weeks of gestation of pregnancy not specified
CPT/HCPCS: 36415; 82950; 85027; 86850; 86900; 86901; J2790

== ENCOUNTER → 2019-07-23 | Outpatient (CLI) | payer BC | LOC: M LAB 07:10 | PROVIDERS: ATTEND Advanced Practice Midwife | DX: R73.02 Impaired glucose tolerance (oral) (principal) ==

== ENCOUNTER → 2019-09-02 | Outpatient (CLI) | payer BC ==
[~2019-09-02] MED LIST changes: +LORA-622 PO; +PROAAER10 INH
[2019-09-02 13:11] LABS: HEMATOCRIT 39.5 % (36.0-47.0); HEMOGLOBIN 12.6 g/dl (12.0-15.5); MEAN CORPUSCULAR HEMOGLOBIN 26.1 pg (27.0-33.0); MEAN CORPUSCULAR HGB CONC 31.9 g/dl (32.0-36.5); MEAN CORPUSCULAR VOLUME 81.8 fl (80.0-96.0); PLATELET COUNT, AUTOMATED 230 10^3/uL (150-450); RED BLOOD COUNT 4.83 10^6/uL (4.00-5.40)
[2019-09-02 13:39] LABS: CREATININE,RANDOM URINE 44.6 MG/DL; TOTAL PROTEIN,RANDOM URINE 20.6 MG/DL (0.0-12.0)
[2019-09-02 13:41] LABS: ALT/SGPT 13 U/L (12-78); BILIRUBIN,TOTAL 0.5 MG/DL (0.2-1.0); CREATININE FOR GFR 0.57 MG/DL (0.55-1.30); GLOMERULAR FILTRATION RATE > 60.0 (>60); LDH LACTATE DEHYDROGENASE 199 U/L (84-246); URIC ACID 5.3 MG/DL (2.6-6.0)
== END ==
LOC: M PLALAB 11:57
PROVIDERS: ATTEND Advanced Practice Midwife
DX: O16.9 Unspecified maternal hypertension, unspecified trimester (principal)

== ENCOUNTER → 2019-09-03 | Outpatient (CLI) | payer BC ==
--- NOTE | 2019-09-04 03:02 | REP ---
Clinical: well-being. Preeclampsia. Technique: Transabdominal obstetrical ultrasound. Findings: Single live advanced gestation in cephalic presentation. Placenta noted anterior/fundal and grade I I without evidence for placenta previa or abruption. Cervix measures 3 cm length and appears closed. Biophysical profile score: 8/8 Amniotic fluid index: 21.4 cm Umbilical cord SD ratio ( insertion): 2.1 (2.8 - 3.8) Umbilical cord SD ratio (placenta insertion ): 2.18 (1.65 - 2.65) Umbilical cord SD ratio (mid cord): 2.12 (1.65 - 2.65) Impression: 1. Single live advanced gestation in cephalic presentation. 2. Amniotic fluid volume normal. Biophysical profile score normal.
== END ==
LOC: M WHC 15:57
PROVIDERS: ATTEND Advanced Practice Midwife
DX: O14.93 Unspecified pre-eclampsia, third trimester (principal)

== ENCOUNTER 2019-09-05 19:32 | Outpatient (CLI) | payer BC ==
[~2019-09-05] VITALS: Ht 157.5 cm; Wt 105.0 kg
[2019-09-05 19:58] VITALS: BP 129/83
[2019-09-05 20:17] VITALS: BP 139/85
[2019-09-05 20:36] VITALS: BP 131/81
[2019-09-05 20:44] VITALS: BP 138/79
--- NOTE | 2019-09-06 07:03 | IPN ---
DATE: 09/05/2019 23-year-old, (G) 2, para (P) 1 female at 37 and 3/7 weeks gestation who presented to triage after claiming of a mild headache and swelling in her lower extremities at home. She also felt that the baby was not moving as much as normal. She had had an elevated blood pressure in the office at her previous visit two days ago. She has a history of preeclampsia in her first . OBJECTIVE: Blood pressure 139/80. Pulse 84. She is in no apparent distress. Head and Neck Exam: Normal. Lungs: Clear. Heart: Regular rate and rhythm. Abdomen: Nontender. Gravid. heart tones Category 1. Contractions irregular, mild. ASSESSMENT: 23-year-old, G2, P1, at 37 and 3/7 weeks gestation who presents with decreased movement, all testing reassuring. PLAN: The patient had no protein on urine dip in triage. Multiple blood pressure readings all normal to just very mildly elevated. Numerous movements auscultated in triage. Patient is scheduled for delivery at 38 weeks by on 09/08/2019.
== END 2019-09-05 20:55 | disposition home or self-care (01) ==
LOC: M LDO 19:32
PROVIDERS: ATTEND Specialist
DX: O36.8130 Decreased fetal movements, third trimester, not applicable or unspecified (principal); Z3A.37 37 weeks gestation of pregnancy; O26.893 Other specified pregnancy related conditions, third trimester; R51 Headache; R03.0 Elevated blood-pressure reading, without diagnosis of hypertension
CPT/HCPCS: 59025; G0378; G0463

== ENCOUNTER 2019-09-08 04:53 | Inpatient (IN) | payer BC ==
[~2019-09-08] VITALS: Ht 157.5 cm; Wt 104.5 kg
[2019-09-08] VITALS (9 sets, daily range): BP systolic 119–137; BP diastolic 62–87
[2019-09-08] MEDS ORDERED: LR 1,000 ML IV SCH ×3 (05:09→09:30)
[2019-09-08] MEDS ORDERED: LACTATED RINGER'S 1000 ML IV STA (05:09)
[2019-09-08] MEDS ORDERED: ceFAZolin SOD 2 GM in IV 1 EA IV ONE (05:15)
[2019-09-08] MEDS ORDERED: BICITRA 30ML SOLN UDC PO ONE (05:15)
[2019-09-08 05:54] LABS: HEMATOCRIT 38.6 % (36.0-47.0); HEMOGLOBIN 12.4 g/dl (12.0-15.5); MEAN CORPUSCULAR HEMOGLOBIN 25.8 pg (27.0-33.0); MEAN CORPUSCULAR HGB CONC 32.1 g/dl (32.0-36.5); MEAN CORPUSCULAR VOLUME 80.2 fl (80.0-96.0); PLATELET COUNT, AUTOMATED 244 10^3/uL (150-450); RED BLOOD COUNT 4.81 10^6/uL (4.00-5.40); WHITE BLOOD COUNT 15.4 10^3/uL (4.0-10.0)
[2019-09-08] MEDS ORDERED: MORPHINE PRES-FREE INJ 10 MG/10 ML VIAL (J2274) As Ordered ONE (07:35)
[2019-09-08] MEDS ORDERED: NALOXONE INJ 0.4 MG/1 ML VIAL (J2310) IV PRN ×2 (07:55)
[2019-09-08] MEDS ORDERED: METOCLOPRAMIDE INJ 10MG/2ML VIAL (J2765) IV PRN ×2 (07:55→09:30)
[2019-09-08] MEDS ORDERED: diphenhydrAMINE INJ 50MG/ML VIAL (J1200) IV PRN (07:55)
[2019-09-08] MEDS ORDERED: ONDANSETRON 4MG/2ML VIAL (J2405) IV PRN ×3 (07:55→09:30)
[2019-09-08] MEDS ORDERED: ePHEDrine SULFATE 25 MG/5 ML(5MG/ML) SYRINGE As Ordered ONE (08:02)
[2019-09-08] MEDS ORDERED: PHENYLephrine HCL 500 MCG/5 ML (100MCG/ML) SYRINGE (J2370) As Ordered ONE ×2 (08:02→08:08)
[2019-09-08] MEDS ORDERED: ONDANSETRON 4MG/2ML VIAL (J2405) As Ordered ONE (08:06)
[2019-09-08] MEDS ORDERED: KETOROLAC 60 MG/2 ML VIAL (J1885) As Ordered ONE (08:06)
[2019-09-08] MEDS ORDERED: OXYTOCIN 30 UNITS IN 0.9% NaCl 500ML IV BAG (J2590) As Ordered ONE (09:06)
[2019-09-08] MEDS ORDERED: OXYTOCIN DRIP 30 UNITS in IV 1 EA IV SCH (09:09)
[2019-09-08] MEDS ORDERED: PROMETHAZINE 25 MG TAB PO PRN (09:15)
[2019-09-08] MEDS ORDERED: MEASLES,MUMPS,RUBELLA VACCINE INJ (MMR-II) (90707) SC SCH (09:15)
[2019-09-08] MEDS ORDERED: PERCOCET 5MG/325MG TAB PO PRN ×2 (09:15→09:30)
[2019-09-08] MEDS ORDERED: ceFAZolin SOD 1 GM in D5W MINI-BAG PLUS 50 ML IV ONE (09:15)
[2019-09-08] MEDS ORDERED: RHOGAM 300 MCG (1500 IU) INJ (J2790) IM SCH (09:15)
[2019-09-08] MEDS ORDERED: ACETAMINOPHEN 500 MG TAB PO PRN (09:15)
[2019-09-08] MEDS ORDERED: fentaNYL 100 MCG/2 ML INJECTION (J3010) IV PRN (09:30)
[2019-09-08] MEDS: NALBUPHINE HCL 10 MG/ML AMP (J2300) IV PRN (11:58)
[2019-09-08] MEDS: KETOROLAC 30 MG/ML VIAL (J1885) IV SCH ×2 (14:57→20:49)
[2019-09-08] MEDS: DOCUSATE SODIUM 100 MG CAP PO SCH (20:49)
[2019-09-09 02:28] VITALS: BP 132/69
[2019-09-09] MEDS: NALBUPHINE HCL 10 MG/ML AMP (J2300) IV PRN (02:36)
[2019-09-09] MEDS: KETOROLAC 30 MG/ML VIAL (J1885) IV SCH (02:36)
[2019-09-09 05:45] VITALS: BP 117/66
[2019-09-09] MEDS ORDERED: PERCOCET PO (07:10)
[2019-09-09] MEDS ORDERED: IBUP80TA PO (07:10)
[2019-09-09] MEDS ORDERED: DOCU100C16 PO (07:10)
[2019-09-09 07:38] LABS: HEMATOCRIT 28.9 % (36.0-47.0); MEAN CORPUSCULAR HEMOGLOBIN 26.2 pg (27.0-33.0); MEAN CORPUSCULAR HGB CONC 31.5 g/dl (32.0-36.5); MEAN CORPUSCULAR VOLUME 83.3 fl (80.0-96.0); PLATELET COUNT, AUTOMATED 193 10^3/uL (150-450); RED BLOOD COUNT 3.47 10^6/uL (4.00-5.40); WHITE BLOOD COUNT 14.3 10^3/uL (4.0-10.0)
[2019-09-09 07:54] LABS: HEMOGLOBIN 9.1 g/dl (12.0-15.5)
[2019-09-09] MEDS: DOCUSATE SODIUM 100 MG CAP PO SCH ×2 (08:16→21:01)
[2019-09-09] MEDS: PRENATAL VITAMINS CHEWABLE TABLET PO SCH (08:16)
[2019-09-09] MEDS: PERCOCET 5MG/325MG TAB PO PRN ×3 (08:17→21:02)
[2019-09-09] MEDS ORDERED: diphenhydrAMINE INJ 50MG/ML VIAL (J1200) IV PRN (10:45)
[2019-09-09] MEDS: IBUPROFEN 800 MG TAB PO SCH ×2 (11:24→18:49)
[2019-09-09 14:00] VITALS: BP 117/65
[2019-09-09 17:58] VITALS: BP 106/65
[2019-09-09 22:00] VITALS: BP 123/70
[2019-09-10 02:00] VITALS: BP 129/84
[2019-09-10] MEDS: IBUPROFEN 800 MG TAB PO SCH ×2 (02:34→11:50)
[2019-09-10] MEDS: PERCOCET 5MG/325MG TAB PO PRN ×2 (02:34→12:31)
[2019-09-10 06:00] VITALS: BP 132/77
--- NOTE | 2019-09-10 07:44 | DS.PDOC ---
Discharge Summary General Date of Admission Sep 08, 2019 at 04:53 Date of Discharge 09/10/2019 Attending Physician: KEYSHA SANTO DO Discharge Summary PROCEDURES PERFORMED DURING STAY: Repeat section ADMITTING DIAGNOSES: 1. IUP at 37.4 2. Preeclampsia 3. Prior section DISCHARGE DIAGNOSES: 1. Repeat section COMPLICATIONS/CHIEF COMPLAINT: Previous Section, Pre Eclampsia. HISTORY OF PRESENT ILLNESS: Patient is a 23-year-old female who is a at 37.4 weeks gestation who presents for a repeat section and recently diagnosed with preeclampsia. She desired a repeat section. HOSPITAL COURSE: uneventful. . DISCHARGE MEDICATIONS: Please see below. ALLERGIES: Please see below. PHYSICAL EXAMINATION ON DISCHARGE: VITAL SIGNS: Please see below. GENERAL: A+Ox3 CARDIOVASCULAR EXAMINATION: RRR with no murmur RESPIRATORY EXAMINATION: regular rate and rhythm with no use of a ABDOMINAL EXAMINATION: dressing is intact EXTREMITIES: generalized edema SKIN: Skin is dry, warm with no rashes or lesions LABORATORY DATA: Please see below. ACTIVITY: As tolerated. No heavy lifting. Pelvic rest. DIET: regular DISCHARGE INSTRUCTIONS: 1. Follow up in 2 weeks and 6 weeks . 2. Reviewed signs of mastitis, hemorrhage, DVT, depression, signs of infection, endometritis, care of incision, pelvic rest, and pain management. 3. Patient to be discharged home. DISCHARGE CONDITION: Stable. Vital Signs/I&Os Vital Signs Date Time Temp Pulse Resp B/P (MAP) Pulse Ox O2 Delivery O2 Flow Rate FiO2 09/10/19 06:00 97.9 80 18 132/77 (95) 98 Room Air Discharge Medications Scheduled Citalopram Hydrobromide (Celexa) 10 Mg Tab, 30 MG PO DAILY, (Reported) Docusate Sodium (Docusate Sodium) 100 Mg Capsule, 100 MG PO BID Fluticasone Propionate (Flonase Allergy Relief) 50 Mcg/Act Spr, 50 MCG NA DAILY, (Reported) Ibuprofen (Ibuprofen) 800 Mg Tablet, 800 MG PO Q8H No.137/Iron/Folic Acd ( Vitamin Tablet) 1 Tab Tab, 1 TAB PO DAILY, (Reported) Scheduled PRN Albuterol Sulfate (Proair Hfa) 8.5 Gm Hfa.aer.ad, 2 PUFF INH QIDP PRN for SOB/WHEEZING, (Reported) Oxycodone/Acetaminophen (Oxycodone-Acetaminophen 5-325) 1 Each Tablet, 1 TAB PO Q4H PRN for MILD/MODERATE PAIN (PS 1-7) Allergies Coded Allergies: No Known Allergies (Unverified , 09/04/19) PEDRO GUY CNM Sep 10, 2019 07:44
[2019-09-10] MEDS: PRENATAL VITAMINS CHEWABLE TABLET PO SCH (08:25)
[2019-09-10] MEDS: DOCUSATE SODIUM 100 MG CAP PO SCH (08:25)
== END 2019-09-10 15:00 | disposition home or self-care (01) | DRG 540 ==
LOC: M LDI 04:53 → M OBS 10:38
PROVIDERS: ADMIT Obstetrics & Gynecology; ATTEND Obstetrics & Gynecology
PROC: 10D00Z1 Extraction of Products of Conception, Low, Open Approach (ICD-10-PCS; principal; 2019-09-08 07:30)
DX: O14.04 Mild to moderate pre-eclampsia, complicating childbirth (principal); Z3A.37 37 weeks gestation of pregnancy; O34.211 Maternal care for low transverse scar from previous cesarean delivery; Z37.0 Single live birth; O99.214 Obesity complicating childbirth; E66.9 Obesity, unspecified

== ENCOUNTER → 2020-01-26 | Outpatient (CLI) | payer BC ==
[~2020-01-26] MED LIST changes: +DOCU100C16 PO; +IBUP80TA PO
[2020-01-26 14:57] LABS: BASO # 0.1 10^3/uL (0.0-0.2); BASO % 0.7 % (0.0-1.0); EOS # 0.1 10^3/uL (0.0-0.5); EOS % 1.6 % (0.0-3.0); HEMATOCRIT 41.8 % (36.0-47.0); HEMOGLOBIN 13.8 g/dl (12.0-15.5); LYMPH # 3.7 10^3/uL (1.5-5.0); LYMPH % 41.1 % (24.0-44.0); MEAN CORPUSCULAR HEMOGLOBIN 26.2 pg (27.0-33.0); MEAN CORPUSCULAR VOLUME 79.3 fl (80.0-96.0); MONO # 0.5 10^3/uL (0.0-0.8); MONO % 5.4 % (0.0-5.0); NEUTROPHILS # 4.6 10^3/uL (1.5-8.5); PLATELET COUNT, AUTOMATED 316 10^3/uL (150-450); RED BLOOD COUNT 5.27 10^6/uL (4.00-5.40); WHITE BLOOD COUNT 8.9 10^3/uL (4.0-10.0)
[2020-01-26 15:23] LABS: ALBUMIN 4.2 GM/DL (3.2-5.2); ALT/SGPT 26 U/L (12-78); BILIRUBIN,TOTAL 0.3 MG/DL (0.2-1.0); BLOOD UREA NITROGEN 9 MG/DL (7-18); CALCIUM LEVEL 9.4 MG/DL (8.5-10.1); CARBON DIOXIDE LEVEL 26 MEQ/L (21-32); CHLORIDE LEVEL 108 MEQ/L (98-107); GLOMERULAR FILTRATION RATE > 60.0 (>60); GLUCOSE, FASTING 81 MG/DL (70-100); NT-PRO BNP 31 PG/ML (<125); POTASSIUM SERUM 4.6 MEQ/L (3.5-5.1); SODIUM LEVEL 140 MEQ/L (136-145); TOTAL PROTEIN 7.6 GM/DL (6.4-8.2); TROPONIN I < 0.02 NG/ML (< 0.10)
[2020-01-29 00:07] LABS: D001-IgE D pteronyssinus 5.18 kU/L (Class IV); E001-IgE Cat Epith/Dander < 0.10 kU/L (Class 0); E005-IgE Dog Dander < 0.10 kU/L (Class 0); G002-IgE Bermuda Grass < 0.10 kU/L (Class 0); G008-IgE Kentucky Bluegrass < 0.10 kU/L (Class 0); M001-IgE Penicillium chrysogen < 0.10 kU/L (Class 0); M002 IgE Cladosporium herbaru < 0.10 kU/L (Class 0); M003 IgE Aspergillus fumigatu < 0.10 kU/L (Class 0); M006-IgE Alternaria alternata < 0.10 kU/L (Class 0); T001-IgE Maple/Box Elder < 0.10 kU/L (Class 0); T003-IgE Common Silver Birch < 0.10 kU/L (Class 0); T006-IgE Cedar, Mountain < 0.10 kU/L (Class 0); T007-IgE Oak, White < 0.10 kU/L (Class 0); T008-IgE Elm, American < 0.10 kU/L (Class 0); T015-IgE Ash, White < 0.10 kU/L (Class 0); T041-IgE Hickory, White < 0.10 kU/L (Class 0); T070-IgE White Mulberry < 0.10 kU/L (Class 0); W001-IgE Ragweed, Short < 0.10 kU/L (Class 0); W009-IgE Plantain, English < 0.10 kU/L (Class 0); W014-IgE Pigweed, Rough < 0.10 kU/L (Class 0); W018-IgE Sheep Sorrel < 0.10 kU/L (Class 0)
== END ==
LOC: M PLALAB 13:45
PROVIDERS: ATTEND Family Medicine
DX: R06.00 Dyspnea, unspecified (principal)

== ENCOUNTER 2020-04-05 18:23 | Emergency (ER) | payer BC ==
[~2020-04-05] VITALS: Ht 157.5 cm; Wt 87.2 kg
[2020-04-05] MEDS ORDERED: SM LTAB5 PO (18:30)
[2020-04-05 19:48] LABS: BASO # 0.1 10^3/uL (0.0-0.2); BASO % 0.6 % (0.0-1.0); EOS # 0.2 10^3/uL (0.0-0.5); EOS % 1.9 % (0.0-3.0); HEMATOCRIT 41.3 % (36.0-47.0); HEMOGLOBIN 13.6 g/dl (12.0-15.5); LYMPH # 3.4 10^3/uL (1.5-5.0); LYMPH % 35.2 % (24.0-44.0); MEAN CORPUSCULAR HEMOGLOBIN 26.8 pg (27.0-33.0); MEAN CORPUSCULAR HGB CONC 32.9 g/dl (32.0-36.5); MEAN CORPUSCULAR VOLUME 81.3 fl (80.0-96.0); MONO # 0.7 10^3/uL (0.0-0.8); NEUTROPHILS # 5.3 10^3/uL (1.5-8.5); PLATELET COUNT, AUTOMATED 322 10^3/uL (150-450); RED BLOOD COUNT 5.08 10^6/uL (4.00-5.40); WHITE BLOOD COUNT 9.6 10^3/uL (4.0-10.0)
[2020-04-05 20:21] LABS: BLOOD UREA NITROGEN 11 MG/DL (7-18); CALCIUM LEVEL 9.1 MG/DL (8.5-10.1); CARBON DIOXIDE LEVEL 29 MEQ/L (21-32); CHLORIDE LEVEL 106 MEQ/L (98-107); CREATININE FOR GFR 0.69 MG/DL (0.55-1.30); GLOMERULAR FILTRATION RATE > 60.0 (>60); GLUCOSE, FASTING 89 MG/DL (70-100); HCG, SERUM QUANTITATIVE 12391 MIU/ML; POTASSIUM SERUM 4.1 MEQ/L (3.5-5.1); SODIUM LEVEL 139 MEQ/L (136-145)
--- NOTE | 2020-04-05 21:23 | REPVR ---
PROCEDURE INFORMATION: Exam: US First Trimester, Transabdominal Exam date and time: 04/05/2020 8:46 PM Age: 24 years old Clinical indication: Lmp or gestational age (in weeks): Lmp 01/29/20; Antepartum complications; Bleeding; ; Prior surgery; Surgery date: 6+ months; Surgery type: ; Additional info: Vaginal bleeding, 9 weeks TECHNIQUE: Imaging protocol: Real-time transabdominal obstetrical ultrasound of the maternal pelvis and a first trimester , less than 14 weeks 0 days, with image documentation. COMPARISON: No relevant prior studies available. FINDINGS: Gestation: Gestational sac within the fundal endometrium of the uterus with pole. Mean sac size is 12 mm suggesting an age of 6 weeks 0 days. Embryonic/ heart rate: No heartbeat is identified. Placenta: Small subchorionic collection measuring 10 x 5 x 10 mm consistent with small subchorionic hemorrhage. Amniotic fluid: Amniotic fluid is normal for gestational age. BIOMETRY: Gestational age (AUA): Composite age is 6 weeks 1 day. The EDC is 11/28/2020. [place]-Rump length: The crown-rump length measures 5 mm suggesting an age of 6 weeks 2 days. MATERNAL: Uterus: The uterus measures 10.3 cm in its cephalocaudad dimension and 5.0 x 6.6 cm in its AP and lateral dimensions transabdominal. The uterus measures 8.9 cm in its cephalocaudad dimension and 4.6 x 5.7 cm in its AP and lateral dimensions. Cervix: Unremarkable. Right adnexa: The right ovary measures 3.5 x 2.6 x 2.3 cm and demonstrates arterial and venous blood flow. Left adnexa: The left ovary measures 2.2 x 2.6 x 2.4 cm and demonstrates arterial and venous blood flow. Intraperitoneal space: No intraperitoneal free fluid. IMPRESSION: 1. Gestational sac with pole with estimated age of 6 weeks 1 day. No heartbeat is identified at this fidelia and findings are suspicious for but not diagnostic of failed . The crown-rump length of 5 mm is below the requisite 7 mm. Follow-up in 1 week may be of benefit. 2. Small subchronic hemorrhage measuring 5 x 10 x 10 mm. Electronically signed by: Selwyn Coates On 04/05/2020 21:23:24 PM
[2020-04-05 22:52] VITALS: BP 153/90
[2020-04-05] MEDS ORDERED: RHOGAM 300 MCG (1500 IU) INJ (J2790) IM ONE (23:30)
--- NOTE | 2020-04-07 10:39 | ED PDOC ---
Post-Departure Follow-Up ginger martinez faxed formal report of 1st trimester us for fu Dai Doshi MD Apr 07, 2020 10:39
== END 2020-04-06 00:45 | disposition home or self-care (01) ==
LOC: M ED 18:23
DX: O20.0 Threatened abortion (principal); O20.8 Other hemorrhage in early pregnancy; O26.891 Other specified pregnancy related conditions, first trimester; Z32.01 Encounter for pregnancy test, result positive; Z86.32 Personal history of gestational diabetes; O34.81 Maternal care for other abnormalities of pelvic organs, first trimester; O99.611 Diseases of the digestive system complicating pregnancy, first trimester; O99.511 Diseases of the respiratory system complicating pregnancy, first trimester; O99.341 Other mental disorders complicating pregnancy, first trimester; Z3A.01 Less than 8 weeks gestation of pregnancy; Z79.899 Other long term (current) drug therapy
CPT/HCPCS: 76801; 76817; 80048; 81001; 84702; 85025; 86850; 86900; 86901; 93976; 96372; 99283; J2790

== ENCOUNTER → 2020-12-06 | Outpatient (REF) | payer BC ==
[~2020-12-06] MED LIST changes: +SM LTAB5 PO
[2020-12-06 18:11] LABS: HEMATOCRIT 39.6 % (36.0-47.0); HEMOGLOBIN 13.2 g/dl (12.0-15.5); MEAN CORPUSCULAR HEMOGLOBIN 26.8 pg (27.0-33.0); MEAN CORPUSCULAR HGB CONC 33.3 g/dl (32.0-36.5); MEAN CORPUSCULAR VOLUME 80.5 fl (80.0-96.0); PLATELET COUNT, AUTOMATED 330 10^3/uL (150-450); RED BLOOD COUNT 4.92 10^6/uL (4.00-5.40); WHITE BLOOD COUNT 13.4 10^3/uL (4.0-10.0)
[2020-12-06 18:35] LABS: ALT/SGPT 17 U/L (12-78); BILIRUBIN,TOTAL 0.2 MG/DL (0.2-1.0); CREATININE FOR GFR 0.55 MG/DL (0.55-1.30); GLOMERULAR FILTRATION RATE > 60.0 (>60); LDH LACTATE DEHYDROGENASE 133 U/L (84-246); URIC ACID 3.7 MG/DL (2.6-6.0)
[2020-12-06 19:25] LABS: HEPATITIS C VIRUS ABY INDEX < 0.0 INDEX (<0.8); HIV 1&2 SCREEN CENTAUR NEGATIVE (NEGATIVE)
== END ==
LOC: M PLALAB 13:46
PROVIDERS: ATTEND Advanced Practice Midwife
DX: O34.219 Maternal care for unspecified type scar from previous cesarean delivery (principal)

== ENCOUNTER → 2021-01-30 | Outpatient (REF) | payer BC | LOC: M SFHCLERA 19:05 | PROVIDERS: ATTEND Nurse Practitioner Family | DX: J45.901 Unspecified asthma with (acute) exacerbation (principal); Z11.52 Encounter for screening for COVID-19 ==

== ENCOUNTER → 2021-02-08 | Outpatient (CLI) | payer BC ==
--- NOTE | 2021-02-08 15:44 | REP ---
INDICATION: ANATOMY [facility] 07/07/21 COMPARISON: None. TECHNIQUE: Transabdominal obstetrical ultrasound with color Doppler evaluation. FINDINGS: Examination demonstrates a single live intrauterine in variable presentation. motion is identified by technologist. Placenta is noted posterior and grade 0 without evidence for placenta previa or abruption. Amniotic fluid volume is normal. Cervix measures 3.3 cm in length and appears closed.. Selected gestational age: 18 weeks 5 days with OSMAR 07/07/2021. Gestational age by current measurements 18 weeks 5 days with OSMAR 07/07/2021. FHR equals 134 beats per minute. Estimated weight 254 grams (46thpercentile). Anatomical assessment demonstrates normal structures including cranium, choroid plexus, cavum, cerebellum/posterior fossa, facial features, lungs, four-chamber heart/ventricular outflow tracts, diaphragm, stomach, cord insertion/three-vessel cord, kidneys/bladder, spine, and extremities. Incidental echogenic focus in the left cardiac ventricle likely prominent chordae tendineae. IMPRESSION: 1. Single live intrauterine in variable presentation demonstrating appropriate estimated weight. 2. Anatomical assessment is essentially normal. Prominent chordae tendineae suspected. If necessary follow-up images of the heart/ventricular outflow tracts may be considered. <Electronically signed by Jim Cervantes > 02/08/21 [id number]
== END ==
LOC: M WHC 14:28
PROVIDERS: ATTEND Advanced Practice Midwife
DX: Z34.92 Encounter for supervision of normal pregnancy, unspecified, second trimester (principal); Z36.89 Encounter for other specified antenatal screening; Z3A.18 18 weeks gestation of pregnancy

== ENCOUNTER → 2021-03-09 | Outpatient (CLI) | payer BC ==
[2021-03-09 18:53] LABS: HEMATOCRIT 37.7 % (36.0-47.0); HEMOGLOBIN 12.5 g/dl (12.0-15.5); MEAN CORPUSCULAR HEMOGLOBIN 27.2 pg (27.0-33.0); MEAN CORPUSCULAR HGB CONC 33.2 g/dl (32.0-36.5); MEAN CORPUSCULAR VOLUME 82.1 fl (80.0-96.0); PLATELET COUNT, AUTOMATED 288 10^3/uL (150-450); RED BLOOD COUNT 4.59 10^6/uL (4.00-5.40); WHITE BLOOD COUNT 15.3 10^3/uL (4.0-10.0)
[2021-03-09 19:13] LABS: TOTAL PROTEIN,RANDOM URINE 23.8 MG/DL (0.0-12.0)
== END ==
LOC: M LAB 17:25
PROVIDERS: ATTEND Advanced Practice Midwife
DX: O16.2 Unspecified maternal hypertension, second trimester (principal); Z3A.00 Weeks of gestation of pregnancy not specified

== ENCOUNTER → 2021-04-13 | Outpatient (CLI) | payer BC ==
--- NOTE | 2021-04-13 11:22 | REP ---
INDICATION: F/U ANATOMY LVOT. COMPARISON: 02/08/2021. TECHNIQUE: Real-time sonographic evaluation of the gravid uterus performed. FINDINGS: Estimated gestational age is27 weeks 6 days, EDC 07/07/2021. Today's measurements indicate appropriate growth. Presentation: Breech Placenta posterior, grade 1, without evidence of placenta previa. heart rate is recorded at 140 beats per minute. Amniotic fluid is subjectively normal. NATALIE 11.3, normal range 9.4-22.8. Closed cervical length is measured at 3.7 cm. Biometry chart: BPD: 72 mm, 29 weeks 0 days, 72nd percentile. HC: 264 mm, 28 weeks 5 days, 69th percentile AC: 244 mm, 28 weeks 4 days, 65th percentile Femur length: 53 mm, 28 weeks 2 days, 60th percentile HC to AC ratio: 1.08, normal range 1.00-1.18. Estimated weight: 1245g, 65th percentile. The ventricular outflow tracts are visualized today and are grossly unremarkable, except for an echogenic focus in the region of the left ventricle likely related to chordae tendineae. IMPRESSION: Viable single intrauterine gestation as above. <Electronically signed by Michael Galloway > 04/13/21 [id number]
== END ==
LOC: M WHC 10:29
PROVIDERS: ATTEND Advanced Practice Midwife
DX: O34.211 Maternal care for low transverse scar from previous cesarean delivery (principal); O32.1XX0 Maternal care for breech presentation, not applicable or unspecified; Z3A.27 27 weeks gestation of pregnancy